=== PATIENT | female | born 1980 | race Caucasian/White ===

== ENCOUNTER 2016-09-04 07:17 | Outpatient (CLI) ==
[2016-08-10 13:27] VITALS: BMI 19.8
--- NOTE | 2016-09-04 10:06 | MRI ---
EXAM: MRI left shoulder without contrast. HISTORY: Pain. Radiating to neck and down arm. Knot on left shoulder marked. No left shoulder temple rgery reported.. TECHNIQUE: Using a local coil on a high field strength magnet multiplanar multisequence MRI was per formed of the left shoulder without intravenous or intra-articular gadolinium contrast. A marker wa s placed over the superior left shoulder overlying the distal left clavicle in the patient's reporte d area of "knot.". FINDINGS: I do not have prior radiographs of the left shoulder available for comparison at the time of this dictation. A Type I acromion. Coracoacromial ligament/arch intact without definitive thickening. Intact corac oclavicular ligament fibers. Left acromioclavicular joint within normal limit in appearance without joint space widening or subluxation. Deltoid musculature normal signal intensity. The visualized trapezius muscle is of normal signal intensity as well. Beneath marker placed over the superior lef t shoulder is normal underlying soft tissue without discrete mass or abnormal fluid collection. The re is a small questionable area of exostosis/protuberance to the clavicle directly underlying. Trace free fluid subacromial/subdeltoid bursa. Muscle bulk of the rotator cuff shows no acute muscle strain or focal atrophy. Moderate supraspinat us tendinosis most evident anteriorly. Some bursal sided fraying.. Posterior mild tendinosis invol ving superior insertional infraspinatus tendon fibers. Posterior intact teres minor tendon fibers. Anterior intact subscapularis tendon fibers. The long head of the biceps tendon shows intact fiber s located in expected position within the bicipital groove and within normal limits signal intensity and morphology. The left humeral head is of normal morphology and seated. No left glenohumeral joint centered subch ondral bone marrow edema or bone erosions. Physiologic amount of fluid left glenohumeral joint. Th e left glenoid labrum grossly intact on this non-arthrographic examination. IMPRESSION: Marker placed over the superior left shoulder in the patient's reported area of "knot". No discrete underlying soft tissue mass or abnormal fluid collection. Small questionable area of exostosis/protuberance to the clavicle directly underlying. Recommendation is obtainment and correl ation with plain film radiographs of the left shoulder to include transscapular Y and axillary view as none are available for comparison at the time of this dictation. Moderate supraspinatus tendinosis most evident anteriorly. Bursal sided fraying. Mild infraspinatu s tendinosis. No full-thickness rotator cuff tear identified. Trace free fluid subacromial/subdeltoid bursa may refl ect an overlying degree bursitis and/or be sequela prior shoulder injection. Correlate clinically.
== END 2016-09-04 07:18 | disposition home or self-care (01) ==
LOC: RAD 07:17
PROVIDERS: ATTEND Nurse Practitioner Family
DX: M25.512 Pain in left shoulder (principal)

== ENCOUNTER 2016-09-26 03:27 | Emergency (ER) ==
[2016-09-26 03:27] VITALS: BMI 19.8
[2016-09-26 03:36] VITALS: BP 120/68; TEMP 99
[2016-09-26] MEDS ORDERED: TORADOL IM STA (04:09)
[2016-09-26] MEDS ORDERED: AUGMENTIN 500-125 MG TAB PO STA (04:09)
[2016-09-26] MEDS ORDERED: DECADRON 4 MG/ML SDV IM STA (04:09)
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
[2016-09-26 04:53] LABS: FLU INTERNAL QC INTERNAL QC VALID; RAPID FLU A NEGATIVE (NEGATIVE); RAPID FLU B NEGATIVE (NEGATIVE)
== END 2016-09-26 04:46 | disposition home or self-care (01) ==
LOC: ED 03:27
DX: H66.001 Acute suppurative otitis media without spontaneous rupture of ear drum, right ear (principal); F17.210 Nicotine dependence, cigarettes, uncomplicated
CPT/HCPCS: 87804; 96372; 99282; 99283

== ENCOUNTER 2016-11-01 07:18 | Emergency (ER) ==
[2016-11-01 07:26] VITALS: BP 125/64; TEMP 99; BMI 19.3
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
[2016-11-01] MEDS: TORADOL IM STA (07:39)
--- NOTE | 2016-11-01 08:11 | DI ---
EXAM: Three views of the right foot. History: Right foot trauma. Comparison: Right foot radiograph 04/08/2016 Findings: No acute fracture or dislocation. No abnormal calcifications or radiopaque foreign bo s. Joint spaces are preserved. Impression: No acute osseous abnormality.
== END 2016-11-01 08:29 | disposition home or self-care (01) ==
LOC: ED 07:18
DX: S91.311A Laceration without foreign body, right foot, initial encounter (principal); S90.31XA Contusion of right foot, initial encounter; W20.8XXA Other cause of strike by thrown, projected or falling object, initial encounter; F17.210 Nicotine dependence, cigarettes, uncomplicated
CPT/HCPCS: 96372; 99283

== ENCOUNTER 2016-12-08 11:30 | Outpatient (CLI) ==
--- NOTE | 2016-12-08 11:58 | DI ---
EXAM: Four views of the left shoulder HISTORY: Pain COMPARISON: 09/04/2016 MRI FINDINGS: No fracture or dislocation is identified. The joint spaces are maintained. The questionable exosto sis/protuberance of the clavicle seen on prior MRI is not visualized in this exam. The clavicle is unremarkable in appearance. IMPRESSION: Unremarkable radiographs of the left shoulder.
--- NOTE | 2016-12-09 09:23 | MRI ---
EXAM: MRI cervical spine without IV contrast. DATE: 08 December 2016. HISTORY: Cervicalgia. TECHNIQUE: Sagittal and axial T1W and T2W sequences of the cervical spine along with sagittal IR an d coronal T2W sequences were obtained using 1.2 Laura magnet. No IV contrast. COMPARISON: C-spine series 28 October 2014. MRI C-spine 02 November 2014. FINDINGS: There is no cervical scoliosis. No acute c-spine fracture, subluxation, osseous malignan cy, or jumped facet is evident. Cervical vertebra are normal in height. Bone marrow signal is norm al. Mild disc space narrowing is evident at C6-7. Remaining intervertebral discs are normal in hei ght. Cervical and upper thoracic spinal cord reveals no syrinx, cord edema, myelomalacia, or neopla sm. Visible brainstem, cerebellum, the mastoid air cells are normal. Pituitary gland is unremarkable. Trachea, larynx, and epiglottis are unremarkable. Minor lingual tonsil prominence is likely benign. No thyroid, submandibular, or parotid gland neoplasm is evident. No distinct neck mass, cervical lymphadenopathy, supraclavicular lymphadenopathy, apical lung mass, pneumonia, or pleural effusion i s demonstrated. Segmental analysis: C2-3: Normal, except for minor right foraminal narrowing due to uncinate hypertrophy. C3-4: Minimal posterior disc bulge (1 mm AP) does not contact the cord. Canal is 11 mm AP. Each f oramen is patent. C4-5: Posterior midline disc protrusion (1.6 mm AP x 7.5 mm transverse) does not contact the cord. Canal is 10.2 mm AP. Each foramen is patent. C5-6: Small posterior disc bulge (1.5 mm AP) with tiny midline annular fissure does not contact the cord. Canal is 9.8 mm AP. Each foramen is patent. C6-7: Small posterior disc bulge (1.7 mm AP) does not contact the cord. Canal is 8.6 mm AP. Mild right foraminal stenosis due to uncinate hypertrophy. C7-T1: Normal. T1-2: Normal. IMPRESSIONS: 1. C-spine mild disc disease similar to October 2014. 2. Mild central canal stenoses at C5-6 and C6-7. 3. Mild right foraminal stenosis at C6-7. 4. Minor lingual tonsil prominence appears benign.
== END 2016-12-08 11:31 | disposition home or self-care (01) ==
LOC: RAD 11:30
PROVIDERS: ATTEND Nurse Practitioner Family
DX: M54.2 Cervicalgia (principal); M25.512 Pain in left shoulder

== ENCOUNTER 2017-03-14 15:21 | Emergency (ER) ==
[2017-03-14] MEDS ORDERED: ATIVAN IVP STA (15:23)
[2017-03-14] MEDS ORDERED: BENADRYL IVP STA (15:23)
[2017-03-14] MEDS ORDERED: SOLU-MEDROL 125 MG IVP STA ×2 (15:23→15:26)
[2017-03-14 15:24] VITALS: BP 130/86; TEMP 97; BMI 18.1
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
== END 2017-03-14 16:25 | disposition home or self-care (01) ==
LOC: ED 15:21
DX: T63.461A Toxic effect of venom of wasps, accidental (unintentional), initial encounter (principal); R60.9 Edema, unspecified; F17.210 Nicotine dependence, cigarettes, uncomplicated
CPT/HCPCS: 96374; 96375; 99282

== ENCOUNTER 2018-01-21 21:20 | Emergency (ER) | payer OTHER ==
[2018-01-21 21:30] VITALS: BP 103/68; TEMP 97.3; BMI 19.4
[2018-01-21] MEDS ORDERED: TORADOL IM STA (21:48)
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
[2018-01-21] MEDS ORDERED: ED AFTER HOURS SUPPLY MED SENT HOME PO ONE (22:28)
[2018-01-21] MEDS ORDERED: NORCO 5-325 ONE (22:32)
== END 2018-01-21 22:45 | disposition home or self-care (01) ==
LOC: ED 21:20
DX: M70.42 Prepatellar bursitis, left knee (principal); F17.210 Nicotine dependence, cigarettes, uncomplicated
CPT/HCPCS: 96372; 99282

== ENCOUNTER 2019-03-27 17:37 | Emergency (ER) ==
[2019-03-27 17:42] VITALS: BP 129/88; TEMP 99.6; BMI 19.4
[2019-03-27] MEDS ORDERED: VALIUM PO STA (18:23)
[2019-03-27] MEDS ORDERED: TORADOL IM STA (18:23)
[2019-03-27] MEDS ORDERED: MORPHINE 2 MG/ML SYRINGE IVP STA (18:24)
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
[2019-03-27] MEDS ORDERED: MORPHINE 2 MG/ML SYRINGE IM STA (18:44)
== END 2019-03-27 19:02 | disposition home or self-care (01) ==
LOC: ED 17:37
DX: M54.2 Cervicalgia (principal); X50.0XXA Overexertion from strenuous movement or load, initial encounter; F17.210 Nicotine dependence, cigarettes, uncomplicated
CPT/HCPCS: 96372; 99283